=== PATIENT | female | born 1965 | race Caucasian/White ===

== ENCOUNTER 2017-07-04 11:03 | Emergency (ER) | payer OTHER ==
[~2017-07-04] VITALS: Ht 167.6 cm; Wt 72.6 kg
[~2017-07-04 11:03] MED LIST: B121000 MCG/1 IM; BENADRYL25 M1 PO; CARAFATE1 G1 PO; CEPHALEXIN500 MG PO; CORDROL20 MG PO; KEFLEX500 MG PO; MAG-OX 400400 MG PO; NEXIUM20 MG PO; PHOS-NAK1 PDR PO; PREVACID30 M1 PO; THERA1 TAB PO; VENTOLIN 02.5 MG/3 M INH; VICODIN ES 7501 TAB PO; VITAMIN B-11 TAB PO; ZESTRIL,PRINIVI10 MG PO; ZITHROMAX250 MG PO; ZOFRAN4 MG PO
[2017-07-04 11:29] VITALS: BP 126/7
[2017-07-04] MEDS ORDERED: AMLODIPINE BESYL5 MG PO (11:31)
[2017-07-04] MEDS ORDERED: LEXAPRO20 MG PO (11:32)
== END 2017-07-04 13:43 | disposition home or self-care (01) ==
LOC: ED 11:03
DX: S82.51XA Displaced fracture of medial malleolus of right tibia, initial encounter for closed fracture (principal); Z79.899 Other long term (current) drug therapy; Z88.8 Allergy status to other drugs, medicaments and biological substances; X50.1XXA Overexertion from prolonged static or awkward postures, initial encounter; Y93.89 Activity, other specified; Y92.89 Other specified places as the place of occurrence of the external cause; Y99.9 Unspecified external cause status

== ENCOUNTER → 2017-07-26 | Outpatient (CLI) | payer OTHER ==
[~2017-07-26] MED LIST changes: +AMLODIPINE BESYL5 MG PO; +LEXAPRO20 MG PO
== END | disposition home or self-care (01) ==
LOC: CT 13:51
DX: S82.831D Other fracture of upper and lower end of right fibula, subsequent encounter for closed fracture with routine healing (principal); X58.XXXD Exposure to other specified factors, subsequent encounter